=== PATIENT | male | born 1995 | race African-American/Black ===

== ENCOUNTER 2017-06-05 18:11 | Emergency (ER) | payer OTHER, SELFPAY ==
[2017-06-05 18:38] LABS: Bilirubin Negative (Negative); Blood, Urine Trace (Negative); Glucose, Urine (Dipstick) Negative (Negative); Leukocyte Small (Negative); Nitrite Negative (Negative); Protein, Urine (Dipstick) 30 mg/dL (Neg-Trace)
[2017-06-05 18:39] LABS: Clarity SL HAZY (Clear)
[2017-06-05 18:50] LABS: RBC/HPF 0-3 HPF (0-3); Squamous Epithelial 0-3 HPF (0-3)
[2017-06-05 18:51] LABS: Specific Gravity, Urine 1.031 (1.002-1.036)
[2017-06-05] MEDS ORDERED: Doxycycline 100 MG CAP ONE (19:17)
[2017-06-08 08:51] LABS: Chlamydia by PCR DETECTED (NotDetected); GC by PCR Not Detected (NotDetected)
== END 2017-06-05 19:19 | disposition home or self-care (01) ==
LOC: NAV ERS 18:11
DX: N34.2 Other urethritis (principal)
CPT/HCPCS: 81003; 81015; 87491; 87591; 99283

== ENCOUNTER 2017-09-25 15:13 | Emergency (ER) | payer SELFPAY | END 2017-09-25 16:53 | disposition home or self-care (01) | LOC: NAV ERS 15:13 | DX: K02.9 Dental caries, unspecified (principal); R11.0 Nausea | CPT/HCPCS: 99282 ==

== ENCOUNTER 2018-06-01 19:02 | Emergency (ER) | payer OTHER, SELFPAY ==
[2018-06-01] MEDS ORDERED: Sodium Chloride 0.9% 500 ML ONE (19:21)
[2018-06-01] MEDS ORDERED: Dexamethasone 20 MG/5 ML VIAL ONE (19:21)
[2018-06-01] MEDS ORDERED: Metoclopramide HCl 10 MG/2 ML VIAL ONE (19:21)
[2018-06-01] MEDS ORDERED: Ketorolac Tromethamine 30 MG/ML VIAL ONE (19:21)
[2018-06-01] MEDS ORDERED: Sodium Chloride 0.9% 500 ML IVPB SCH (19:30)
[2018-06-01] MEDS ORDERED: Dexamethasone 4 mg/ml Vial SLOW IVP SCH (19:30)
[2018-06-01] MEDS ORDERED: Ketorolac Tromethamine 30 MG/ML VIAL IVP SCH (19:30)
[2018-06-01] MEDS ORDERED: Metoclopramide HCl 10 MG/2 ML VIAL IVP SCH (19:30)
[2018-06-01 19:52] LABS: #Basophils 0.1 thou/uL (0.0-0.2); #Eosinphils 0.1 thou/uL (0.0-0.7); #Lymphocytes 1.6 thou/uL (1.20-3.40); #Monocytes 0.6 thou/uL (0.11-0.59); #Neutrophils 2.5 thou/uL (1.40-6.50); %Basophils 1.4 % (0.0-1.0); %Eosinophils 1.6 % (0.0-10.0); %Lymphocytes 33.7 % (21.0-51.0); %Monocytes 11.9 % (0.0-10.0); %Neutrophils 51.4 % (42.0-75.0); ALT (SGPT) 25 U/L (8-55); AST (SGOT) 21 U/L (5-34); Albumin 4.5 g/dL (3.5-5.0); Alkaline Phosphatase 79 U/L (40-150); Anion Gap 12 mmol/L (10-20); BUN (Urea Nitrogen) 14 mg/dL (8.9-20.6); Bilirubin, Total 1.2 mg/dL (0.2-1.2); CK (CPK) 421 U/L (30-200); Calc. Creatinine Clearance 0 mL/min (70-130); Calcium 9.9 mg/dL (7.8-10.44); Carbon Dioxide 30 mmol/L (22-29); Chloride 104 mmol/L (98-107); Estimated GFR-MDRD 88; Globulin 3.1 g/dL (2.4-3.5); Glucose 96 mg/dL (70-105); Hemoglobin 15.6 g/dL (14.0-18.0); Mean Corpuscular Hemoglobin 24.7 pg (27.0-31.0); Mean Corpuscular Volume 82.4 fL (78.0-98.0); Mean Platelet Volume 8.9 fL (7.4-10.4); Platelet Count 248 thou/uL (130-400); Potassium 4.2 mmol/L (3.5-5.1); Protein, Total 7.6 g/dL (6.0-8.3); Sodium 142 mmol/L (136-145); White Blood Cell (WBC) Count 4.8 thou/uL (4.8-10.8)
--- NOTE | 2018-06-01 20:26 | CT ---
CT HEAD NONCONTRAST: History: Headache. FINDINGS: There is no evidence of acute intracranial hemorrhage or infarct. Ventricles appear normal in size, s hape, and position. There is no mass effect or shift of midline structures. Visualized paranasal sinu ses remain well aerated. IMPRESSION: No acute intracranial abnormalities are demonstrated. POS: [facility]
[2018-06-01 20:37] LABS: Platelet Morphology Comment Appears Adequate; RBC Morphology Normal
== END 2018-06-01 20:13 | disposition home or self-care (01) ==
LOC: NAV ERS 19:02
DX: G43.909 Migraine, unspecified, not intractable, without status migrainosus (principal)
CPT/HCPCS: 70450; 80053; 82550; 85025; 96374; 96375; J1100; J1885; J2765; J7050

== ENCOUNTER 2019-05-08 16:23 | Emergency (ER) | payer OTHER, SELFPAY | END 2019-05-08 17:15 | disposition home or self-care (01) | LOC: NAV ERS 16:23 | DX: J02.9 Acute pharyngitis, unspecified (principal) | CPT/HCPCS: 87081; 87430; 99283 ==

== ENCOUNTER 2020-04-22 19:39 | Emergency (ER) | payer SELFPAY ==
[2020-04-22] MEDS ORDERED: diphenhydrAMINE 50 MG/ML VIAL ONE (20:01)
[2020-04-22] MEDS ORDERED: Metoclopramide HCl 10 MG/2 ML VIAL ONE (20:01)
[2020-04-22] MEDS ORDERED: Sodium Chloride 0.9% 1,000 ML ONE (20:01)
== END 2020-04-22 20:54 | disposition home or self-care (01) ==
LOC: NAV ERS 19:39
DX: G43.909 Migraine, unspecified, not intractable, without status migrainosus (principal)
CPT/HCPCS: 96365; 96375; J1200; J2765; J7050

== ENCOUNTER 2020-09-12 15:11 | Emergency (ER) | payer SELFPAY ==
[2020-09-12] MEDS ORDERED: Ondansetron ODT 4 MG TAB ONE (15:43)
[2020-09-12] MEDS ORDERED: Acetaminophen 500 MG TAB ONE (15:43)
== END 2020-09-12 15:48 | disposition home or self-care (01) ==
LOC: NAV ERS 15:11
DX: R51.9 Headache, unspecified (principal)
CPT/HCPCS: 99283; Q0162

== ENCOUNTER 2021-08-18 03:17 | Emergency (ER) | payer SELFPAY ==
[2021-08-18] MEDS ORDERED: traMADol HCl 50 MG TAB ONE (03:38)
[2021-08-18] MEDS ORDERED: Naproxen 500 MG TAB ONE (03:39)
== END 2021-08-18 04:12 | disposition home or self-care (01) ==
LOC: NAV ERS 03:17
DX: S76.811A Strain of other specified muscles, fascia and tendons at thigh level, right thigh, initial encounter (principal); X58.XXXA Exposure to other specified factors, initial encounter; Y93.02 Activity, running
CPT/HCPCS: 99283

== ENCOUNTER 2021-09-24 19:42 | Emergency (ER) | payer SELFPAY ==
[2021-09-24] MEDS ORDERED: Sodium Chloride 0.9% 1,000 ML ONE (20:26)
[2021-09-24] MEDS ORDERED: Prochlorperazine 10 MG/2 ML VIAL ONE (20:26)
[2021-09-24] MEDS ORDERED: diphenhydrAMINE 50 MG/ML VIAL ONE (20:26)
[2021-09-24] MEDS ORDERED: Ketorolac Tromethamine 30 MG/ML VIAL ONE (20:26)
== END 2021-09-24 21:30 | disposition home or self-care (01) ==
LOC: NAV ERS 19:42
DX: G43.909 Migraine, unspecified, not intractable, without status migrainosus (principal)
CPT/HCPCS: 96365; 96375; J0780; J1200; J1885; J7050

== ENCOUNTER 2021-11-08 08:50 | Emergency (ER) | payer SELFPAY | END 2021-11-08 10:20 | disposition home or self-care (01) | LOC: NAV ERS 08:50 | DX: M79.632 Pain in left forearm (principal) ==

== ENCOUNTER 2021-12-27 10:25 | Emergency (ER) | payer SELFPAY ==
[2021-12-27] MEDS ORDERED: Ibuprofen 800 MG TAB ONE (10:58)
== END 2021-12-27 11:15 | disposition home or self-care (01) ==
LOC: NAV ERS 10:25
DX: B34.9 Viral infection, unspecified (principal)
CPT/HCPCS: 99283

== ENCOUNTER 2022-01-14 09:52 | Emergency (ER) | payer SELFPAY | END 2022-01-14 10:40 | disposition home or self-care (01) | LOC: NAV ERS 09:52 | DX: H92.01 Otalgia, right ear (principal) | CPT/HCPCS: 99282 ==

== ENCOUNTER 2022-06-20 00:38 | Emergency (ER) | payer SELFPAY ==
[2022-06-20] MEDS ORDERED: Aspirin Chewable 81 MG TAB ONE (00:52)
[2022-06-20] MEDS ORDERED: Ketorolac Tromethamine 30 MG/ML VIAL ONE (00:52)
[2022-06-20 01:04] LABS: #Basophils 0.1 thou/uL (0.0-0.2); #Eosinphils 0.2 thou/uL (0.0-0.7); #Lymphocytes 2.5 thou/uL (1.20-3.40); #Monocytes 0.5 thou/uL (0.11-0.59); #Neutrophils 2.2 thou/uL (1.40-6.50); %Basophils 1.8 % (0.0-1.0); %Eosinophils 3.2 % (0.0-10.0); %Lymphocytes 45.1 % (21.0-51.0); %Monocytes 9.1 % (0.0-10.0); %Neutrophils 40.8 % (42.0-75.0); Mean Corpuscular HGB CONC 31.9 g/dL (32.0-36.0); Mean Corpuscular Hemoglobin 26.5 pg (27.0-31.0); Mean Corpuscular Volume 82.9 fl (78.0-98.0); Mean Platelet Volume 9.5 fL (7.4-10.4); Platelet Count 235 10x3/uL (130-400); RBC Distribution Width 12.4 % (11.5-14.5); White Blood Cell (WBC) Count 5.5 10x3/uL (4.8-10.8)
[2022-06-20 01:19] LABS: Amphetamine Not Detected (NotDetected); Benzodiazepine Screen Not Detected (NotDetected); Cocaine Metabolite Screen Not Detected (NotDetected); Methadone Not Detected (NotDetected); Methamphetamine Not Detected (NotDetected); Opiate Screen Not Detected (NotDetected); Phencyclidine (PCP) Not Detected (NotDetected); THC/Cannabinoid Screen Not Detected (NotDetected); Tricyclic Screen Not Detected (NotDetected)
[2022-06-20 01:20] LABS: ALT (SGPT) 40 U/L (8-55); AST (SGOT) 24 U/L (5-34); Albumin 3.9 g/dL (3.5-5.0); Alkaline Phosphatase 69 U/L (40-110); Anion Gap 12 mmol/L (10-20); BUN (Urea Nitrogen) 10 mg/dL (8.9-20.6); Bilirubin, Total 0.3 mg/dL (0.2-1.2); CK (CPK) 536 U/L (30-200); Calc. Creatinine Clearance 0 mL/min (70-130); Carbon Dioxide 27 mmol/L (22-29); Chloride 107 mmol/L (98-107); Estimated GFR 80; Globulin 2.7 g/dL (2.4-3.5); Glucose 121 mg/dL (70-105); Lipase 74 U/L (8-78); Potassium 3.9 mmol/L (3.5-5.1); Protein, Total 6.6 g/dL (6.0-8.3); Sodium 142 mmol/L (136-145)
[2022-06-20 01:20] LABS: Barbiturates Screen Not Detected (NotDetected); Oxycodone Screen Not Detected (NotDetected)
[2022-06-20] MEDS ORDERED: Sodium Chloride 0.9% 1,000 ML ONE ×2 (01:25→02:55)
[2022-06-20] MEDS ORDERED: Ondansetron PF 4 MG/2 ML Vial ONE ×2 (01:45→03:01)
[2022-06-20 04:14] LABS: Troponin I Less than 0.010 ng/mL (< 0.028)
== END 2022-06-20 04:25 | disposition home or self-care (01) ==
LOC: NAV ERS 00:38
DX: R07.89 Other chest pain (principal); R11.2 Nausea with vomiting, unspecified
CPT/HCPCS: 71045; 80053; 80306; 82550; 83690; 83880; 84484; 85025; 85379; 93005; 96361; 96374; 96375; J1885; J2405; J7050

== ENCOUNTER 2022-10-15 05:33 | Emergency (ER) | payer SELFPAY | END 2022-10-15 06:10 | disposition home or self-care (01) | LOC: NAV ERS 05:33 | DX: B34.9 Viral infection, unspecified (principal); Z20.822 Contact with and (suspected) exposure to COVID-19 | CPT/HCPCS: 87635; 99283 ==

== ENCOUNTER 2023-03-31 17:24 | Emergency (ER) | payer SELFPAY | END 2023-03-31 18:30 | disposition home or self-care (01) | LOC: NAV ERS 17:24 | DX: B34.9 Viral infection, unspecified (principal) | CPT/HCPCS: 99283 ==

== ENCOUNTER 2023-04-19 04:04 | Emergency (ER) | payer OTHER, SELFPAY | END 2023-04-19 04:40 | disposition home or self-care (01) | LOC: NAV ERS 04:04 | DX: M79.674 Pain in right toe(s) (principal); W21.31XA Struck by shoe cleats, initial encounter | CPT/HCPCS: 99283 ==

== ENCOUNTER 2023-04-24 09:05 | Emergency (ER) | payer OTHER ==
[2023-04-24] MEDS ORDERED: Acetaminophen 500 MG TAB ONE (09:49)
== END 2023-04-24 10:31 | disposition home or self-care (01) ==
LOC: NAV ERS 09:05
DX: G44.209 Tension-type headache, unspecified, not intractable (principal)
CPT/HCPCS: 99283

== ENCOUNTER 2025-01-04 06:34 | Emergency (ER) | payer SELFPAY ==
[2025-01-04] MEDS ORDERED: Acetaminophen 500 MG TAB ONE (07:11)
== END 2025-01-04 07:20 | disposition home or self-care (01) ==
LOC: NAV ERS 06:34
DX: G44.209 Tension-type headache, unspecified, not intractable (principal)
CPT/HCPCS: 99283

== ENCOUNTER 2025-02-09 18:02 | Emergency (ER) | payer SELFPAY ==
[2025-02-09] MEDS ORDERED: Ibuprofen 800 MG TAB ONE (18:18)
== END 2025-02-09 18:25 | disposition home or self-care (01) ==
LOC: NAV ERS 18:02
DX: G44.209 Tension-type headache, unspecified, not intractable (principal); R11.0 Nausea
CPT/HCPCS: 99283; Q0162